=== PATIENT | female | born 1990 | race African-American/Black ===

== ENCOUNTER 2021-05-26 13:00 | Inpatient (IN) ==
[2021-05-26] MEDS ORDERED: ONDANSETRON 4 MG/2 ML VIAL ONE (14:04)
[2021-05-26] MEDS ORDERED: SODIUM CHLORIDE 0.9% 1,000 ML IV STA (14:16)
[2021-05-26] MEDS ORDERED: ONDANSETRON 4 MG/2 ML VIAL IV ONE (14:16)
[2021-05-26 14:45] LABS: Albumin 3.9 G/DL (3.4-5.0); Bilirubin,Total 0.6 MG/DL (0.20-1.00); Calcium 9.8 MG/DL (8.5-10.1); Potassium 2.7 MMOL/L (3.5-5.1)
[2021-05-26 14:54] LABS: Basophils % 0.4 % (0.0-0.8); Eosinophils % 0.3 % (0.00-10.9); Hematocrit 37.1 VOL% (35.7-47.0); Hemoglobin 12.7 GM/DL (12.0-16.0); Immature Granulocytes % 0.7 %; Immature Granulocytes Absolute 0.05 #; Lymphocytes # 1.8 10*3/uL (1.4-4.0); Lymphocytes % 24.1 % (21.3-54.2); Mean Corpuscular HGB Conc 34.2 GM/DL (32-36); Mean Corpuscular Volume 85.3 FL (87-102); Mean Platelet Volume 12.6 FL (9.6-12.0); Monocytes % 5.6 % (1.7-12.7); Neutrophils % 68.9 % (38.7-73.9); Platelet Count 285 T/CUMM (130-400); Red Blood Count 4.35 MC/CUMM (3.8-5.5); Red Cell Distribution Width 12.2 % (9.3-17.3); White Blood Count 7.6 T/CUMM (4-12)
[2021-05-26] MEDS ORDERED: POTASSIUM CHLORIDE 20 MEQ TABLET PO STA (15:15)
[2021-05-26] MEDS ORDERED: DEXTROSE 50% 25 GM/50 ML VIAL IV PRN (15:40)
[2021-05-26] MEDS ORDERED: GLUCAGON 1 MG VIAL IM PRN (15:40)
[2021-05-26] MEDS ORDERED: POTASSIUM CHLORIDE 20 MEQ TABLET PO PRN (15:40)
[2021-05-26] MEDS: SODIUM CHLORIDE 0.9% 1,000 ML IV SCH (15:55)
[2021-05-26] MEDS: POTASSIUM CHLORIDE RIDER 10 MEQ/100 ML PREMIX IV SCH ×2 (15:56→18:34)
[2021-05-26] MEDS: ONDANSETRON 4 MG/2 ML VIAL IV PRN ×2 (16:11→19:41)
[2021-05-26] MEDS ORDERED: ALBUTEROL 1.25 MG/3 ML NEB RESP TX PRN (16:14)
[2021-05-26] MEDS ORDERED: POTASSIUM CHLORIDE INJ 50 MEQ in SODIUM CHLORIDE 0.9% 500 ML IV ONE (18:00)
[2021-05-27] MEDS: SODIUM CHLORIDE 0.9% 1,000 ML IV SCH (01:07)
[2021-05-27] MEDS: ONDANSETRON 4 MG/2 ML VIAL IV PRN ×5 (01:13→19:22)
[2021-05-27 06:08] LABS: Basophils % 0.5 % (0.0-0.8); Eosinophils # 0.1 10*3/uL (0.0-0.87); Eosinophils % 0.9 % (0.00-10.9); Hematocrit 31.5 VOL% (35.7-47.0); Hemoglobin 10.8 GM/DL (12.0-16.0); Immature Granulocytes % 0.3 %; Immature Granulocytes Absolute 0.02 #; Lymphocytes # 2.4 10*3/uL (1.4-4.0); Lymphocytes % 32.3 % (21.3-54.2); Mean Corpuscular HGB Conc 34.3 GM/DL (32-36); Mean Corpuscular Volume 86.1 FL (87-102); Mean Platelet Volume 12.2 FL (9.6-12.0); Monocytes % 8.8 % (1.7-12.7); Neutrophils % 57.2 % (38.7-73.9); Platelet Count 299 T/CUMM (130-400); Red Blood Count 3.66 MC/CUMM (3.8-5.5); Red Cell Distribution Width 12.4 % (9.3-17.3); White Blood Count 7.4 T/CUMM (4-12)
[2021-05-27 06:34] LABS: Albumin 2.9 G/DL (3.4-5.0); Bilirubin,Total 1.2 MG/DL (0.20-1.00); Calcium 8.4 MG/DL (8.5-10.1); Osmolality,Calculated 271.5 MOS/KG (273-304); Potassium 2.8 MMOL/L (3.5-5.1); Total Protein 6.4 G/DL (6.4-8.2)
[2021-05-27] MEDS ORDERED: POTASSIUM CHLORIDE INJ 50 MEQ in SODIUM CHLORIDE 0.9% 500 ML IV ONE (09:00)
[2021-05-27] MEDS ORDERED: LACTATED RINGERS 1,000 ML IV SCH (09:30)
[2021-05-27] MEDS ORDERED: DEXT 5% LACT RING KCL 20 MEQ 20 MEQ/1,000 ML BAG IV SCH (09:30)
[2021-05-27] MEDS: DEXTROSE 5% LACTATED RINGERS 1,000 ML IV SCH ×2 (09:55→19:22)
[2021-05-27] MEDS: POLYETHYLENE GLYCOL POWDER 17 GM PACK PO SCH ×3 (11:37→22:00)
[2021-05-27] MEDS: MULTIVITAMIN (PRENATAL) TABLET PO SCH ×2 (11:37→11:42)
[2021-05-27] MEDS: LACTULOSE 20 GM/30 ML UDCUP PO SCH ×2 (11:37→11:42)
[2021-05-28] MEDS: ONDANSETRON 4 MG/2 ML VIAL IV PRN ×5 (00:21→21:18)
[2021-05-28] MEDS: DEXTROSE 5% LACTATED RINGERS 1,000 ML IV SCH ×2 (04:47→14:53)
[2021-05-28 05:43] LABS: Basophils # 0.1 10*3/uL (0.0-0.2); Basophils % 0.8 % (0.0-0.8); Eosinophils # 0.2 10*3/uL (0.0-0.87); Eosinophils % 2.8 % (0.00-10.9); Hematocrit 30.3 VOL% (35.7-47.0); Hemoglobin 10.1 GM/DL (12.0-16.0); Immature Granulocytes % 0.3 %; Immature Granulocytes Absolute 0.02 #; Lymphocytes # 2.4 10*3/uL (1.4-4.0); Lymphocytes % 40.2 % (21.3-54.2); Mean Corpuscular HGB Conc 33.3 GM/DL (32-36); Mean Corpuscular Volume 86.6 FL (87-102); Mean Platelet Volume 11.8 FL (9.6-12.0); Monocytes % 8.9 % (1.7-12.7); Platelet Count 264 T/CUMM (130-400); Red Cell Distribution Width 12.4 % (9.3-17.3); White Blood Count 6.1 T/CUMM (4-12)
[2021-05-28 05:55] LABS: Calcium 8.5 MG/DL (8.5-10.1); Osmolality,Calculated 266.1 MOS/KG (273-304); Potassium 2.9 MMOL/L (3.5-5.1)
[2021-05-28] MEDS: POTASSIUM CHLORIDE RIDER 10 MEQ/100 ML PREMIX IV PRN ×5 (08:29→14:53)
[2021-05-28] MEDS: LACTULOSE 20 GM/30 ML UDCUP PO SCH ×2 (08:32→09:09)
[2021-05-28] MEDS: POLYETHYLENE GLYCOL POWDER 17 GM PACK PO SCH ×2 (08:32→21:18)
[2021-05-28] MEDS: MULTIVITAMIN (PRENATAL) TABLET PO SCH (08:32)
[2021-05-28] MEDS: MAGNESIUM OXIDE 400 MG TABLET PO SCH (08:32)
[2021-05-28 12:02] LABS: Bilirubin,Urine Negative (Negative); Blood, Urine Negative (Negative); Glucose,Urine (UA) Negative (Negative); Ketones,Urine 20 mg/dL (Negative); Mucus,Urine Few /LPF (Occasional); Nitrite,Urine Negative (Negative); Protein,Urine Negative; RBC,Urine <1 /HPF (0-4); Squamous Epithelial Cell,Urine Occasional /HPF (0-10); Urine Appearance CLEAR (Clear); Urine Color Yellow (Yellow)
[2021-05-28] MEDS: POTASSIUM CHLORIDE 20 MEQ TABLET PO PRN ×2 (21:18→23:22)
[2021-05-29] MEDS: DEXTROSE 5% LACTATED RINGERS 1,000 ML IV SCH ×2 (00:20→07:32)
[2021-05-29] MEDS: POTASSIUM CHLORIDE RIDER 10 MEQ/100 ML PREMIX IV PRN ×6 (01:44→15:27)
[2021-05-29 07:45] LABS: Basophils % 0.8 % (0.0-0.8); Eosinophils # 0.1 10*3/uL (0.0-0.87); Eosinophils % 2.9 % (0.00-10.9); Hematocrit 30.3 VOL% (35.7-47.0); Hemoglobin 10.6 GM/DL (12.0-16.0); Immature Granulocytes % 0.4 %; Immature Granulocytes Absolute 0.02 #; Lymphocytes # 1.8 10*3/uL (1.4-4.0); Lymphocytes % 36.5 % (21.3-54.2); Mean Corpuscular Volume 84.4 FL (87-102); Mean Platelet Volume 11.2 FL (9.6-12.0); Neutrophils % 50.4 % (38.7-73.9); Platelet Count 268 T/CUMM (130-400); Red Blood Count 3.59 MC/CUMM (3.8-5.5); Red Cell Distribution Width 12.3 % (9.3-17.3); White Blood Count 4.9 T/CUMM (4-12)
[2021-05-29 08:09] LABS: Calcium 9.3 MG/DL (8.5-10.1); Osmolality,Calculated 265.1 MOS/KG (273-304); Potassium 3.2 MMOL/L (3.5-5.1)
[2021-05-29] MEDS ORDERED: SODIUM CHLORIDE 0.9% 500 ML IV ONE ×2 (08:20→13:34)
[2021-05-29] MEDS: MAGNESIUM OXIDE 400 MG TABLET PO SCH ×2 (08:43→20:50)
[2021-05-29] MEDS: MULTIVITAMIN (PRENATAL) TABLET PO SCH (08:43)
[2021-05-29] MEDS: ONDANSETRON 4 MG/2 ML VIAL IV PRN (08:55)
[2021-05-29] MEDS: LACTULOSE 20 GM/30 ML UDCUP PO SCH (10:01)
[2021-05-29] MEDS: POLYETHYLENE GLYCOL POWDER 17 GM PACK PO SCH ×2 (10:01→20:51)
[2021-05-29] MEDS: SODIUM CHLORIDE 0.9% 1,000 ML IV SCH ×2 (15:54→22:32)
[2021-05-30 04:47] LABS: Basophils % 0.5 % (0.0-0.8); Eosinophils # 0.1 10*3/uL (0.0-0.87); Eosinophils % 2.4 % (0.00-10.9); Hematocrit 30.4 VOL% (35.7-47.0); Hemoglobin 10.3 GM/DL (12.0-16.0); Immature Granulocytes % 0.3 %; Immature Granulocytes Absolute 0.02 #; Lymphocytes # 2.5 10*3/uL (1.4-4.0); Lymphocytes % 42.8 % (21.3-54.2); Mean Corpuscular HGB Conc 33.9 GM/DL (32-36); Mean Corpuscular Volume 86.6 FL (87-102); Mean Platelet Volume 11.6 FL (9.6-12.0); Monocytes % 8.7 % (1.7-12.7); Neutrophils % 45.3 % (38.7-73.9); Platelet Count 243 T/CUMM (130-400); Red Blood Count 3.51 MC/CUMM (3.8-5.5); Red Cell Distribution Width 12.4 % (9.3-17.3); White Blood Count 5.7 T/CUMM (4-12)
[2021-05-30 05:22] LABS: Calcium 8.5 MG/DL (8.5-10.1); Osmolality,Calculated 270.7 MOS/KG (273-304); Potassium 3.6 MMOL/L (3.5-5.1)
[2021-05-30] MEDS: SODIUM CHLORIDE 0.9% 1,000 ML IV SCH ×2 (05:57→15:04)
[2021-05-30] MEDS: MULTIVITAMIN (PRENATAL) TABLET PO SCH (08:28)
[2021-05-30] MEDS: MAGNESIUM OXIDE 400 MG TABLET PO SCH (08:28)
[2021-05-30] MEDS: POTASSIUM CHLORIDE 20 MEQ TABLET PO PRN (08:28)
[2021-05-30] MEDS: ONDANSETRON 4 MG/2 ML VIAL IV PRN (08:29)
[2021-05-30] MEDS: POTASSIUM CHLORIDE RIDER 10 MEQ/100 ML PREMIX IV PRN (10:20)
[2021-05-30] MEDS: LACTULOSE 20 GM/30 ML UDCUP PO SCH (10:31)
[2021-05-30] MEDS: POLYETHYLENE GLYCOL POWDER 17 GM PACK PO SCH (10:31)
[2021-05-30 11:35] VITALS: BP 101/48
[2021-05-30] MEDS ORDERED: ACETAMINOPHEN 325 MG TABLET PO PRN (12:45)
== END 2021-05-30 15:02 | disposition home or self-care (01) | DRG 566 ==
LOC: N.ED 13:00 → N.EDINP 13:00 → SUATTDRO 15:40 → N.5E 17:22 → SUATTDRO 05-27 09:25
PROVIDERS: ADMIT Internal Medicine; ATTEND Internal Medicine Nephrology